=== PATIENT | female | born 1975 ===

== ENCOUNTER 2017-07-30 11:01 | Day surgery (SDC) | payer BC ==
[2017-07-30] MEDS ORDERED: ceFAZolin IV 1 gm in Dextrose 2 GM/100 ML BAG IVPB ONE (15:16)
[2017-07-30] MEDS ORDERED: Bupivacaine HCl 0.5% PF (10 ml) Inj ONE (15:17)
[2017-07-30] MEDS ORDERED: Bupivacaine 0.25% Inj(30mL) ONE (15:17)
[2017-07-30] MEDS ORDERED: Lidocaine Hydrochloride 15 ML INJ ONE (15:17)
[2017-07-30] MEDS ORDERED: Propofol 10 mg/ml Inj (20 ML) ONE (15:41)
[2017-07-30] MEDS ORDERED: Midazolam 2 MG/2 ML VIAL ONE (15:41)
[2017-07-30] MEDS ORDERED: Lidocaine Hydrochloride 5 ML INJ ONE (15:48)
[2017-07-30] MEDS ORDERED: Oxycodone/Acetaminophen 5/325 mg Tab PO PRN (16:35)
[2017-07-30] MEDS ORDERED: HYDROmorphone 0.5 mg/0.5 ml ISec IVP PRN (16:38)
[2017-07-30] MEDS ORDERED: Lactated Ringer's 1,000 ML IV SCH (16:45)
[2017-07-30 18:22] VITALS: TEMP 97.5
[2017-07-30 18:52] VITALS: BP 106/51; PULSE 58; RESP 16; O2SAT 100
--- NOTE | 2017-07-31 01:50 | OP ---
PROCEDURE DATE: 07/30/2017 PREOPERATIVE DIAGNOSIS: Bilateral wrist neoplasm. POSTOPERATIVE DIAGNOSIS: Bilateral wrist neoplasm. PROCEDURE PERFORMED: Wide and deep excision of bilateral wrist neoplasms with adjacent tissue transfer and closures. SURGEON: Austin Lopez MD ANESTHESIA: General. BLOOD LOSS: 35 mL. POSTOPERATIVE CONDITION: Stable. INDICATIONS FOR SURGERY: This is a 41-year-old female who presents with painful bilateral wrist masses, now to undergo wide and deep excision. DESCRIPTION OF PROCEDURE: The patient was taken to the operative room. General anesthesia was administered. Both wrists were prepped and draped. An elliptical incision was made in the dorsum of the left wrist first over 3 cm, it was dissected free into the joint space. A 3 cm bony tumor was noted and excised. Bleeding was controlled using the Bovie. A larger blood vessel was repaired. The wound was irrigated with saline. An advancement flap closure was performed by taking full-thickness flaps using counter incisions and using multiple layers of Monocryl, subcuticular Monocryl, and glue. The above was repeated on the right side. The patient tolerated the procedure well, returned to recovery room in stable condition. Austin Lopez MD
== END 2017-07-30 19:00 | disposition home or self-care (01) ==
LOC: C.SDS 11:01
PROVIDERS: ATTEND Surgery
DX: M67.432 Ganglion, left wrist (principal); M67.431 Ganglion, right wrist
CPT/HCPCS: 25111; 88304; J0690; J2250; J2405; J2704; J3010